=== PATIENT | male | born 1975 | race Two or more races ===

== ENCOUNTER 2022-12-06 12:53 | Emergency (ER) | payer SELFPAY ==
[2022-12-06 13:38] LABS: BASOPHILS ABSOLUTE AUTO 0.03 10^3/uL (0.00-0.10); BASOPHILS PERCENT AUTO 0.2 % (0.0-1.0); EOSINOPHILS ABSOLUTE AUTO 0.19 10^3/uL (0.10-0.30); EOSINOPHILS PERCENT AUTO 1.5 % (1.0-3.0); HEMATOCRIT 49.7 % (40.0-52.0); HEMOGLOBIN 17.3 g/dL (13.0-17.0); IMMATURE GRAN ABSOLUTE AUTO 0.02 10^3/uL (0.00-0.50); IMMATURE GRAN PERCENT AUTO 0.2 % (0.0-5.0); LYMPHOCYTES ABSOLUTE AUTO 1.95 10^3/uL (1.00-4.00); LYMPHOCYTES PERCENT AUTO 15.2 % (20.0-40.0); MEAN CORPUSCULAR HEMOGLOBIN 30.3 pg (27.0-31.0); MEAN CORPUSCULAR HGB CONC 34.8 g/dL (32.0-36.0); MEAN PLATELET VOLUME 10.9 fL (7.4-10.4); MONOCYTES ABSOLUTE AUTO 1.01 10^3/uL (0.10-0.80); MONOCYTES PERCENT AUTO 7.9 % (2.0-8.0); NEUTROPHILS ABSOLUTE AUTO 9.59 10^3/uL (2.50-7.00); PLATELET COUNT,PLT 252 10^3/uL (150-400); RED BLOOD CELL COUNT 5.71 10^6/uL (4.50-6.00); RED CELL DISTRIBUTION WIDTH 11.5 % (11.5-14.5); WHITE BLOOD CELL COUNT,WBC 12.79 10^3/uL (5.00-10.00)
[2022-12-06 13:42] LABS: APPEARANCE,URINE CLEAR (CLEAR); BILIRUBIN,URINE NEGATIVE (NEGATIVE); COLOR,URINE YELLOW (YELLOW); GLUCOSE,URINE NEGATIVE (NEGATIVE); KETONES,URINE NEGATIVE (NEGATIVE); LEUKOCYTE ESTERASE,URINE NEGATIVE (NEGATIVE); NITRITE,URINE NEGATIVE (NEGATIVE); OCCULT BLOOD,URINE NEGATIVE (NEGATIVE); PH,URINE 6.5 (5.0-9.0); PROTEIN,URINE NEGATIVE (NEGATIVE)
[2022-12-06] MEDS ORDERED: Sodium Chloride 0.9% 1,000 ML IV ONE (13:48)
[2022-12-06] MEDS ORDERED: HYDROmorphone 1 MG/ML Syringe IVPUSH ONE (13:48)
[2022-12-06] MEDS ORDERED: Ketorolac 30 MG/ML SDV IVPUSH ONE (13:48)
[2022-12-06 13:52] LABS: ALBUMIN 3.97 g/dL (3.40-5.00); ANION GAP 15.6 mmol/L (5-15); BILIRUBIN TOTAL 0.9 mg/dL (0.2-1.0); C-REACTIVE PROTEIN 1.9 mg/dL (0.0-0.9); CALCIUM 8.7 mg/dL (8.7-10.3); CREATININE 0.69 mg/dL (0.51-1.17); EST CRCL DRUG DOSING (CG) 134.74 mL/min; POTASSIUM,K 3.6 mmol/L (3.5-5.1); PROTEIN TOTAL,TP 8.3 g/dL (6.4-8.2)
[2022-12-06] MEDS ORDERED: Iopamidol 755 Mg/ML 100 ML Bottle IV ONE (14:43)
[2022-12-06] MEDS ORDERED: Sodium Chloride 0.9% 50 ML IV SCH (14:45)
== END 2022-12-06 17:25 ==
LOC: EDBD 12:53 → KA.ED 12:53
DX: K56.609 Unspecified intestinal obstruction, unspecified as to partial versus complete obstruction (principal)
CPT/HCPCS: 36415; 74177; 80053; 81003; 83690; 85025; 86140; 96374; 96375; 99285; J1170; J1885; J3490; J7030; Q9967; 99284

== ENCOUNTER 2023-02-01 18:53 | Emergency (ER) | payer SELFPAY ==
[2023-02-01 19:41] LABS: BASOPHILS ABSOLUTE AUTO 0.03 10^3/uL (0.00-0.10); BASOPHILS PERCENT AUTO 0.3 % (0.0-1.0); EOSINOPHILS ABSOLUTE AUTO 0.43 10^3/uL (0.10-0.30); EOSINOPHILS PERCENT AUTO 4.4 % (1.0-3.0); HEMATOCRIT 42.4 % (40.0-52.0); HEMOGLOBIN 14.5 g/dL (13.0-17.0); IMMATURE GRAN ABSOLUTE AUTO 0.01 10^3/uL (0.00-0.50); IMMATURE GRAN PERCENT AUTO 0.1 % (0.0-5.0); LYMPHOCYTES ABSOLUTE AUTO 2.47 10^3/uL (1.00-4.00); LYMPHOCYTES PERCENT AUTO 25.4 % (20.0-40.0); MEAN CORPUSCULAR HEMOGLOBIN 30.2 pg (27.0-31.0); MEAN CORPUSCULAR HGB CONC 34.2 g/dL (32.0-36.0); MEAN CORPUSCULAR VOLUME 88.3 fL (82.0-92.0); MEAN PLATELET VOLUME 11.5 fL (7.4-10.4); MONOCYTES ABSOLUTE AUTO 0.99 10^3/uL (0.10-0.80); MONOCYTES PERCENT AUTO 10.2 % (2.0-8.0); NEUTROPHILS ABSOLUTE AUTO 5.79 10^3/uL (2.50-7.00); NEUTROPHILS PERCENT AUTO 59.6 % (50.0-70.0); PLATELET COUNT,PLT 236 10^3/uL (150-400); RED CELL DISTRIBUTION WIDTH 12.3 % (11.5-14.5); WHITE BLOOD CELL COUNT,WBC 9.72 10^3/uL (5.00-10.00)
[2023-02-01 19:47] LABS: ANION GAP 13.8 mmol/L (5-15); CALCIUM 8.5 mg/dL (8.7-10.3); CARBON DIOXIDE,CO2 25.5 mmol/L (21.0-32.0); CREATININE 0.72 mg/dL (0.51-1.17); EST CRCL DRUG DOSING (CG) 129.13 mL/min; POTASSIUM,K 3.3 mmol/L (3.5-5.1)
== END 2023-02-01 20:22 | disposition home or self-care (01) ==
LOC: KA.ED 18:53
DX: G47.00 Insomnia, unspecified (principal); R20.0 Anesthesia of skin; R20.2 Paresthesia of skin; F17.210 Nicotine dependence, cigarettes, uncomplicated
CPT/HCPCS: 80048; 82947; 84484; 85025; 93005; 93010; 99284